=== PATIENT | male | born 1995 | race African-American/Black ===

== ENCOUNTER 2020-07-06 08:32 | Emergency (ER) | payer OTHER ==
[~2020-07-06] VITALS: Ht 177.8 cm; Wt 78.0 kg
[~2020-07-06 08:32] MED LIST: ACCUNEB SO1.25 MG/1; AUGMENTIN 875875 MG PO; BENADRYL25 MG PO; FLAGYL500 MG PO; GUAIFEN-CODEINE10 ML PO; PRELONE15 MG/5 ML PO; ZOFRAN ODT4 MG PO
[2020-07-06 09:00] LABS: URINE BILIRUBIN NEGATIVE (Negative); URINE BLOOD NEGATIVE (Negative); URINE CLARITY CLEAR; URINE COLOR YELLOW; URINE GLUCOSE-RANDOM* NEGATIVE (Negative); URINE KETONES NEGATIVE (Negative); URINE NITRITE-REFLEX NEGATIVE (Negative); URINE PROTEIN (DIPSTICK) NEGATIVE (Negative); URINE SPECIFIC GRAVITY 1.015 (1.005-1.035); URINE UROBILINOGEN 0.2 E.U./dl (0.2-1.0)
[2020-07-06 09:10] LABS: URINE LEUKOCYTES-REFLEX 1+ (Negative)
[2020-07-06 09:15] LABS: CASTS None Seen /LPF (None Seen); MUCUS >6 Heavy strn/LPF (None Seen); SQUAMOUS 0-3 Few /LPF (0-3)
[2020-07-06 09:16] LABS: BACTERIA-REFLEX 1-9 Few /HPF (None Seen); CRYSTALS None Seen /LPF (None Seen); URINE RBC None Seen /HPF (NONE SEEN); URINE WBC-REFLEX 0-5 Rare /HPF (0-5)
[2020-07-06] MEDS ORDERED: DOXYCYCLINE 10100 MG PO (09:54)
[2020-07-06 09:56] VITALS: BP 120/69
== END 2020-07-06 10:10 | disposition home or self-care (01) ==
LOC: ER 08:32
PROVIDERS: Emergency Medicine
DX: R36.9 Urethral discharge, unspecified (principal); R10.9 Unspecified abdominal pain; Z20.822 Contact with and (suspected) exposure to COVID-19; J45.909 Unspecified asthma, uncomplicated; Z79.899 Other long term (current) drug therapy